=== PATIENT | female | born 2000 | race Caucasian/White ===

== ENCOUNTER 2019-06-23 18:22 | Outpatient (CLI) | payer OTHER | END 2019-06-23 22:43 | disposition home or self-care (01) | LOC: OBS/DEL 18:22 | DX: O26.893 Other specified pregnancy related conditions, third trimester (principal); Z04.1 Encounter for examination and observation following transport accident; O35.8XX0 Maternal care for other (suspected) fetal abnormality and damage, not applicable or unspecified; Z34.83 Encounter for supervision of other normal pregnancy, third trimester; V49.69XA Unspecified car occupant injured in collision with other motor vehicles in traffic accident, initial encounter; Y93.89 Activity, other specified; Y92.488 Other paved roadways as the place of occurrence of the external cause; Y99.8 Other external cause status ==

== ENCOUNTER 2021-07-27 09:30 | Inpatient (IN) | payer OTHER ==
[~2021-07-27] VITALS: Ht 160 cm; Wt 3.6 kg
== END 2021-08-03 19:46 | disposition home or self-care (01) | DRG 788 ==
LOC: LDR 08-01 07:00 → OB/GYN 08-01 12:08 → O/R 08-01 12:08 → OB/GYN 08-01 15:51
PROVIDERS: ADMIT Obstetrics & Gynecology; ATTEND Obstetrics & Gynecology
PROC: 4A1HXFZ Monitoring of Products of Conception, Cardiac Rhythm, External Approach (ICD-10-PCS; 2021-08-01)
PROC: 10D00Z1 Extraction of Products of Conception, Low, Open Approach (ICD-10-PCS; principal; 2021-08-01 07:00)
DX: O34.211 Maternal care for low transverse scar from previous cesarean delivery (principal); Z37.0 Single live birth; Z3A.39 39 weeks gestation of pregnancy